=== PATIENT | male | born 1980 | race Caucasian/White ===

== ENCOUNTER 2018-02-18 09:52 | Inpatient (IN) | payer MEDICAID ==
[~2018-02-18] VITALS: Ht 190.5 cm; Wt 81.8 kg
--- NOTE | ~2018-02-18 | MORECARE ---
CASE MANAGEMENT DISCHARGE SUMMARY PATIENT: OSMIN VALERO UNIT: [id number] ADM DATE: 02/18/18 AGE: 37 : [birth year] SEX: M ROOM/BED: D.2122 AUTHOR: MOE OROPEZA PHYSICIAN: REFERRING PHYSICIAN: WILSON HOPPER MD DATE OF SERVICE: 02/20/18 Discharge Plan Patient Name: OSMIN VALERO Facility: [facility]:[place] : 1980 Planned Disposition: Home Anticipated Discharge Date: 02/19/18 Discharge Date: 02/19/2018 Expected LOS: 1 Initial Reviewer: [id number] Initial Review Date: 02/20/2018 Generated: 02/20/18 8:13 am Patient Name: OSMIN VALERO Page [id number] at 0714 All edits/amendments must be made on the electronic document DICTATION DATE: 02/20/18712 NAVAL SCIENCE TEACHER: GABBY 02/20/18712 RPT#: [id number] DC DATE:02/19/18 STATUS: DIS IN [facility] [address] [place] [address] END OF REPORT
--- NOTE | ~2018-02-18 | CN ---
PATIENT NAME:OSMIN VALERO MEDICAL RECORD: [id number] : 82 LOCATION:[address] ADMIT DATE: 02/18/18 ACCOUNT: [id number] CONSULTING PHYSICIAN: ADOLPH WHITE MD REFERRING PHYSICIAN: WILSON HOPPER MD DATE OF CONSULTATION: 02/19/2018 PSYCHIATRIC CONSULTATION IDENTIFYING DATA: The patient is 37 years old and he is admitted to the hospital on a voluntary basis secondary to tachycardia and paranoia. CHIEF COMPLAINT: "I just messed up." HISTORY OF PRESENT ILLNESS: The patient has a long history of methamphetamine abuse and he has about 6 months of sobriety until the past week. Last night was his second time using methamphetamine in the past week and at that time he developed anxiety, tachycardia and some paranoia and presented to the Emergency Room, whereupon he was admitted. This morning, he is calmer. He is dressed. He is groomed. He is appropriate and shows no evidence of intoxication with any kind of illicit substance. 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 He has no thoughts of harming himself or others. He is fully oriented and shows no evidence of acute or direct dangerousness. ASSESSMENT: 1. Methamphetamine abuse. 2. Alcohol abuse. PLAN: The patient will be maintained on current medicines, which include Seroquel and Wellbutrin. I recommend he stay on these for the time being and that he follow up with a primary care physician or if possible a psychiatrist. He is also going to attend outpatient NA meetings. His long-term prognosis is guarded and will be entirely contingent upon his ability to refrain from illicit drug use. TRANSINT:[id number] Voice Confirmation ID: [id number] DOCUMENT ID: [id number] ADOLPH WHITE MD at 1507 CC: [id number] DICTATION DATE: 02/19/18 0952 MIX MILL TENDER: 02/19/18 1004 DIS IN 02/19/18 [place] [id number] [place] [address]
[2018-02-18 10:13] LABS: BASOPHILS 0.1 % (0-2); EOSINOPHILS 1.2 % (0-7); HEMOGLOBIN 15.2 g/dL (13.5-17.5); IMMATURE GRANULOCYTES 0.1 % (0-5); LYMPHOCYTES 25.7 % (15-50); MCH 32.4 pg (26.0-34.0); MCHC 34.5 g/dL (31.0-37.0); MCV 93.8 fL (80.0-100.0); MEAN PLATELET VOLUME 9.3 fL (7.4-10.4); NEUTROPHILS 62.9 % (40-80); PLATELET COUNT 216 10x3/uL (130-400); RBC 4.69 10x6/uL (4.20-6.10); RDW 13.3 % (11.5-14.5); WBC 6.9 10x3/uL (4.8-10.8)
[2018-02-18 10:25] LABS: ALBUMIN 3.8 g/dL (3.4-5.0); ALKALINE PHOSPHATASE 65 U/L (46-116); ALT (SGPT) 21 U/L (10-68); BILIRUBIN - TOTAL 0.59 mg/dL (0.2-1.3); CALC OSMOLALITY 276 mosm/kg (275-300); CALCIUM 9.7 mg/dL (8.5-10.1); CARBON DIOXIDE 24.2 mmol/L (21.0-32.0); CHLORIDE - SERUM 101 mmol/L (98-107); GLUCOSE 159 mg/dL (74-106); POTASSIUM - SERUM 3.4 mmol/L (3.5-5.1); PROTEIN - SERUM 7.8 g/dL (6.4-8.2); SODIUM 137 mmol/L (136-145); UREA NITROGEN 12 mg/dL (7-18); eGFR NON AFRICAN AMERICAN 90 mL/min (90-120)
[2018-02-18 10:37] LABS: CKMB 1.4 U/L (0.0-3.6); CREATINE KINASE 253 UL (21-232); TROPONIN-I < 0.017 ng/mL (0.000-0.060)
[2018-02-18 10:38] LABS: APTT 27.4 SECONDS (22.8-39.4); INR 0.99 (0.85-1.17); PROTIME 12.6 SECONDS (11.6-15.0)
[2018-02-18] MEDS ORDERED: SEROQUEL100 MG PO (13:52)
[2018-02-18] MEDS ORDERED: BUPROPION XL300 MG PO (13:53)
[2018-02-18] MEDS ORDERED: OMEPRAZOLE20 M1 PO (13:54)
[2018-02-18 14:32] LABS: CKMB 1.4 U/L (0.0-3.6); CREATINE KINASE 232 UL (21-232); TROPONIN-I < 0.017 ng/mL (0.000-0.060)
[2018-02-18 15:19] VITALS: BP 128/84
[2018-02-18 15:55] VITALS: Ht 190.5 cm; Wt 81.8 kg
[2018-02-18 19:18] LABS: CKMB 1.3 U/L (0.0-3.6); CREATINE KINASE 207 UL (21-232)
[2018-02-18 19:49] LABS: TROPONIN-I < 0.017 ng/mL (0.000-0.060)
[2018-02-18 20:00] VITALS: BP 127/86
[2018-02-19 00:29] VITALS: BP 121/81
[2018-02-19 01:06] LABS: CREATINE KINASE 172 UL (21-232); TROPONIN-I < 0.017 ng/mL (0.000-0.060)
[2018-02-19 04:48] VITALS: BP 120/74
[2018-02-19 05:07] LABS: BASOPHILS 0.6 % (0-2); EOSINOPHILS 3.3 % (0-7); HEMATOCRIT 44.8 % (42.0-54.0); HEMOGLOBIN 15.1 g/dL (13.5-17.5); IMMATURE GRANULOCYTES 0.2 % (0-5); MCH 32.5 pg (26.0-34.0); MCHC 33.7 g/dL (31.0-37.0); MEAN PLATELET VOLUME 9.6 fL (7.4-10.4); MONOCYTES 10.8 % (2-11); NEUTROPHILS 53.1 % (40-80); PLATELET COUNT 224 10x3/uL (130-400); RBC 4.65 10x6/uL (4.20-6.10); RDW 13.8 % (11.5-14.5)
[2018-02-19 05:47] LABS: ALBUMIN 3.4 g/dL (3.4-5.0); ALKALINE PHOSPHATASE 60 U/L (46-116); ALT (SGPT) 18 U/L (10-68); BILIRUBIN - TOTAL 0.93 mg/dL (0.2-1.3); CALC OSMOLALITY 282 mosm/kg (275-300); CALCIUM 8.7 mg/dL (8.5-10.1); CARBON DIOXIDE 24.1 mmol/L (21.0-32.0); CHLORIDE - SERUM 105 mmol/L (98-107); CREATININE - SERUM 1.1 mg/dL (0.6-1.3); GLUCOSE 128 mg/dL (74-106); POTASSIUM - SERUM 3.6 mmol/L (3.5-5.1); PROTEIN - SERUM 7.2 g/dL (6.4-8.2); SODIUM 142 mmol/L (136-145); eGFR NON AFRICAN AMERICAN 80 mL/min (90-120)
[2018-02-19 05:50] LABS: MCV 96.3 fL (80.0-100.0); WBC 4.8 10x3/uL (4.8-10.8)
[2018-02-19 05:57] LABS: UREA NITROGEN 7 mg/dL (7-18)
[2018-02-19 08:25] VITALS: BP 119/74
[2018-02-19] MEDS ORDERED: CARDIZEM60 MG PO (10:50)
[2018-02-19] MEDS ORDERED: BUSPAR 15 MG TA15 MG PO (10:51)
[2018-02-19] MEDS ORDERED: BUPROPION XL300 MG PO (10:51)
[2018-02-19] MEDS ORDERED: OMEPRAZOLE20 M1 PO (10:52)
[2018-02-19] MEDS ORDERED: SEROQUEL100 MG PO (10:53)
== END 2018-02-19 15:30 | disposition home or self-care (01) | DRG 310 ==
LOC: D.ER 09:52 → D.EDHOLD 12:37 → D.M2 12:37
PROVIDERS: Family Medicine
DX: R00.0 Tachycardia, unspecified (principal); F15.10 Other stimulant abuse, uncomplicated; F10.10 Alcohol abuse, uncomplicated; F22 Delusional disorders; F41.8 Other specified anxiety disorders; K21.9 Gastro-esophageal reflux disease without esophagitis; Z72.0 Tobacco use

== ENCOUNTER 2018-03-17 09:06 | Emergency (ER) | payer MEDICAID ==
[~2018-03-17] VITALS: Ht 190.5 cm; Wt 81.8 kg
[~2018-03-17 09:06] MED LIST: BUPROPION XL300 MG PO; BUSPAR 15 MG TA15 MG PO; CARDIZEM60 MG PO; OMEPRAZOLE20 M1 PO; SEROQUEL100 MG PO
[2018-03-17 09:14] VITALS: Ht 190.5 cm; Wt 81.8 kg
[2018-03-17 09:37] LABS: BASOPHILS 0.4 % (0-2); EOSINOPHILS 4.4 % (0-7); HEMATOCRIT 41.7 % (42.0-54.0); HEMOGLOBIN 14.5 g/dL (13.5-17.5); IMMATURE GRANULOCYTES 0.2 % (0-5); LYMPHOCYTES 35.5 % (15-50); MCH 32.3 pg (26.0-34.0); MCHC 34.8 g/dL (31.0-37.0); MCV 92.9 fL (80.0-100.0); MEAN PLATELET VOLUME 9.3 fL (7.4-10.4); MONOCYTES 9.2 % (2-11); NEUTROPHILS 50.3 % (40-80); PLATELET COUNT 240 10x3/uL (130-400); RBC 4.49 10x6/uL (4.20-6.10); RDW 12.9 % (11.5-14.5); WBC 4.8 10x3/uL (4.8-10.8)
[2018-03-17 09:55] LABS: ALBUMIN 3.6 g/dL (3.4-5.0); ALKALINE PHOSPHATASE 63 U/L (46-116); ALT (SGPT) 37 U/L (10-68); CALC OSMOLALITY 269 mosm/kg (275-300); CALCIUM 8.8 mg/dL (8.5-10.1); CARBON DIOXIDE 22.7 mmol/L (21.0-32.0); CHLORIDE - SERUM 99 mmol/L (98-107); CREATININE - SERUM 0.9 mg/dL (0.6-1.3); GLUCOSE 168 mg/dL (74-106); PROTEIN - SERUM 7.4 g/dL (6.4-8.2); SODIUM 134 mmol/L (136-145); UREA NITROGEN 8 mg/dL (7-18); eGFR NON AFRICAN AMERICAN > 90 mL/min (90-120)
[2018-03-17 09:56] LABS: POTASSIUM - SERUM 4.2 mmol/L (3.5-5.1)
[2018-03-17 09:59] LABS: UDS - AMPHET POSITIVE QUAL (NEGATIVE); UDS - BARB NEGATIVE QUAL (NEGATIVE); UDS - BENZO NEGATIVE QUAL (NEGATIVE); UDS - COCAINE NEGATIVE QUAL (NEGATIVE); UDS - OPIATE NEGATIVE QUAL (NEGATIVE); UDS - PCP NEGATIVE QUAL (NEGATIVE); UDS - THC NEGATIVE QUAL (NEGATIVE)
[2018-03-17 10:16] LABS: CKMB 2.5 U/L (0.0-3.6); CREATINE KINASE 309 UL (21-232)
[2018-03-17 10:19] LABS: TROPONIN-I < 0.017 ng/mL (0.000-0.060)
[2018-03-17 11:10] VITALS: BP 104/58
== END 2018-03-17 11:11 | disposition home or self-care (01) ==
LOC: D.ER 09:06
PROVIDERS: Emergency Medicine
DX: F15.10 Other stimulant abuse, uncomplicated (principal); F41.0 Panic disorder [episodic paroxysmal anxiety]

== ENCOUNTER 2018-03-18 15:12 | Emergency (ER) | payer MEDICAID ==
[~2018-03-18] VITALS: Ht 190.5 cm; Wt 81.6 kg
[2018-03-18 15:17] VITALS: Ht 190.5 cm; Wt 81.6 kg
[2018-03-18 16:30] LABS: CREATINE KINASE 167 UL (21-232); TROPONIN-I < 0.017 ng/mL (0.000-0.060)
[2018-03-18 18:32] VITALS: BP 125/89
== END 2018-03-18 18:33 | disposition home or self-care (01) ==
LOC: D.ER 15:12
PROVIDERS: Emergency Medicine
DX: F15.10 Other stimulant abuse, uncomplicated (principal); R00.0 Tachycardia, unspecified

== ENCOUNTER 2018-04-16 08:58 | Emergency (ER) | payer MEDICAID ==
[~2018-04-16] VITALS: Ht 190.5 cm; Wt 81.8 kg
[2018-04-16 09:01] VITALS: Ht 190.5 cm; Wt 81.8 kg
[2018-04-16 09:57] LABS: BASOPHILS 0.6 % (0-2); EOSINOPHILS 3.7 % (0-7); HEMATOCRIT 45.8 % (42.0-54.0); HEMOGLOBIN 16.2 g/dL (13.5-17.5); IMMATURE GRANULOCYTES 0.1 % (0-5); LYMPHOCYTES 30.6 % (15-50); MCH 32.4 pg (26.0-34.0); MCHC 35.4 g/dL (31.0-37.0); MCV 91.6 fL (80.0-100.0); MEAN PLATELET VOLUME 9.3 fL (7.4-10.4); MONOCYTES 8.5 % (2-11); NEUTROPHILS 56.5 % (40-80); PLATELET COUNT 279 10x3/uL (130-400); RDW 12.8 % (11.5-14.5); WBC 6.8 10x3/uL (4.8-10.8)
[2018-04-16 09:59] LABS: APTT 29.5 SECONDS (22.8-39.4); INR 1.03 (0.85-1.17)
[2018-04-16 10:02] LABS: ALBUMIN 4.2 g/dL (3.4-5.0); ALKALINE PHOSPHATASE 82 U/L (46-116); ALT (SGPT) 29 U/L (10-68); BILIRUBIN - TOTAL 0.84 mg/dL (0.2-1.3); CALC OSMOLALITY 274 mosm/kg (275-300); CALCIUM 9.5 mg/dL (8.5-10.1); CARBON DIOXIDE 24.4 mmol/L (21.0-32.0); CHLORIDE - SERUM 101 mmol/L (98-107); POTASSIUM - SERUM 3.4 mmol/L (3.5-5.1); PROTEIN - SERUM 8.2 g/dL (6.4-8.2); SODIUM 138 mmol/L (136-145); UREA NITROGEN 9 mg/dL (7-18); eGFR NON AFRICAN AMERICAN 90 mL/min (90-120)
[2018-04-16 10:05] LABS: GLUCOSE 97 mg/dL (74-106)
[2018-04-16 10:14] LABS: CKMB 2.5 U/L (0.0-3.6); CREATINE KINASE 349 UL (21-232); MAGNESIUM - SERUM 2.2 mg/dL (1.8-2.4); TROPONIN-I < 0.017 ng/mL (0.000-0.060)
[2018-04-16 11:15] VITALS: BP 134/88
== END 2018-04-16 10:45 | disposition home or self-care (01) ==
LOC: D.ER 08:58
PROVIDERS: Emergency Medicine
DX: T43.625A Adverse effect of amphetamines, initial encounter (principal); Y92.89 Other specified places as the place of occurrence of the external cause

== ENCOUNTER 2018-05-23 09:13 | Emergency (ER) | payer MEDICAID ==
[~2018-05-23] VITALS: Ht 190.5 cm; Wt 77.3 kg
[2018-05-23 09:16] VITALS: BP 146/78; Ht 190.5 cm; Wt 77.3 kg
[2018-05-23 09:50] LABS: HEMATOCRIT 43.6 % (42.0-54.0); HEMOGLOBIN 15.3 g/dL (13.5-17.5); LYMPHOCYTES 14.7 % (15-50); MCH 32.4 pg (26.0-34.0); MCHC 35.1 g/dL (31.0-37.0); MCV 92.4 fL (80.0-100.0); MEAN PLATELET VOLUME 8.4 fL (7.4-10.4); PLATELET COUNT 316 10x3/uL (130-400); RBC 4.72 10x6/uL (4.20-6.10); RDW 13.1 % (11.5-14.5); WBC 9.6 10x3/uL (4.8-10.8)
[2018-05-23 09:53] LABS: APTT 27.8 SECONDS (22.8-39.4); INR 0.98 (0.85-1.17); PROTIME 12.5 SECONDS (11.6-15.0)
[2018-05-23 09:58] LABS: ALBUMIN 4.2 g/dL (3.4-5.0); ALKALINE PHOSPHATASE 68 U/L (46-116); ALT (SGPT) 34 U/L (10-68); BILIRUBIN - TOTAL 1.11 mg/dL (0.2-1.3); CALC OSMOLALITY 275 mosm/kg (275-300); CALCIUM 9.6 mg/dL (8.5-10.1); CARBON DIOXIDE 26.6 mmol/L (21.0-32.0); CHLORIDE - SERUM 100 mmol/L (98-107); GLUCOSE 113 mg/dL (74-106); POTASSIUM - SERUM 3.4 mmol/L (3.5-5.1); PROTEIN - SERUM 7.8 g/dL (6.4-8.2); SODIUM 138 mmol/L (136-145); UREA NITROGEN 11 mg/dL (7-18); eGFR NON AFRICAN AMERICAN 90 mL/min (90-120)
[2018-05-23 10:08] LABS: CKMB 4.9 U/L (0.0-3.6); CREATINE KINASE 318 UL (21-232); MAGNESIUM - SERUM 2.3 mg/dL (1.8-2.4)
[2018-05-23 10:10] LABS: TROPONIN-I < 0.017 ng/mL (0.000-0.060)
== END 2018-05-23 10:43 | disposition home or self-care (01) ==
LOC: D.ER 09:13
PROVIDERS: Family Medicine
DX: R07.89 Other chest pain (principal); F41.9 Anxiety disorder, unspecified; F15.129 Other stimulant abuse with intoxication, unspecified; F17.210 Nicotine dependence, cigarettes, uncomplicated; K21.9 Gastro-esophageal reflux disease without esophagitis

== ENCOUNTER 2018-06-09 02:34 | Emergency (ER) | payer MEDICAID | END 2018-06-09 03:11 | disposition home or self-care (01) | LOC: D.ER 02:34 | DX: R00.0 Tachycardia, unspecified (principal); F15.10 Other stimulant abuse, uncomplicated ==

== ENCOUNTER 2018-06-13 00:03 | Emergency (ER) | payer MEDICAID ==
[~2018-06-13] VITALS: Ht 190.5 cm; Wt 77.3 kg
[2018-06-13 00:06] VITALS: Ht 190.5 cm; Wt 77.3 kg
[2018-06-13 01:05] VITALS: BP 127/93
== END 2018-06-13 01:04 | disposition home or self-care (01) ==
LOC: D.ER 00:03
DX: F15.20 Other stimulant dependence, uncomplicated (principal)

== ENCOUNTER 2018-06-15 11:08 | Emergency (ER) | payer MEDICAID ==
[~2018-06-15] VITALS: Ht 190.5 cm; Wt 77.3 kg
[2018-06-15 11:29] VITALS: Ht 190.5 cm; Wt 77.3 kg
[2018-06-15 11:53] LABS: BASOPHILS 0.3 % (0-2); EOSINOPHILS 0.4 % (0-7); HEMATOCRIT 43.7 % (42.0-54.0); HEMOGLOBIN 15.6 g/dL (13.5-17.5); IMMATURE GRANULOCYTES 0.3 % (0-5); LYMPHOCYTES 12.7 % (15-50); MCH 32.4 pg (26.0-34.0); MCHC 35.7 g/dL (31.0-37.0); MCV 90.9 fL (80.0-100.0); MEAN PLATELET VOLUME 8.9 fL (7.4-10.4); MONOCYTES 6.9 % (2-11); NEUTROPHILS 79.4 % (40-80); PLATELET COUNT 349 10x3/uL (130-400); RBC 4.81 10x6/uL (4.20-6.10); RDW 13.3 % (11.5-14.5); WBC 11.8 10x3/uL (4.8-10.8)
[2018-06-15 12:06] LABS: APTT 29.3 SECONDS (22.8-39.4); INR 1.04 (0.85-1.17); PROTIME 13.1 SECONDS (11.6-15.0)
[2018-06-15 12:07] LABS: UDS - AMPHET POSITIVE QUAL (NEGATIVE); UDS - BARB NEGATIVE QUAL (NEGATIVE); UDS - BENZO NEGATIVE QUAL (NEGATIVE); UDS - COCAINE NEGATIVE QUAL (NEGATIVE); UDS - OPIATE NEGATIVE QUAL (NEGATIVE); UDS - PCP NEGATIVE QUAL (NEGATIVE); UDS - THC NEGATIVE QUAL (NEGATIVE)
[2018-06-15 12:09] LABS: ALKALINE PHOSPHATASE 88 U/L (46-116); ALT (SGPT) 26 U/L (10-68); BILIRUBIN - TOTAL 0.79 mg/dL (0.2-1.3); CALC OSMOLALITY 276 mosm/kg (275-300); CALCIUM 9.5 mg/dL (8.5-10.1); CARBON DIOXIDE 23.7 mmol/L (21.0-32.0); CHLORIDE - SERUM 101 mmol/L (98-107); GLUCOSE 99 mg/dL (74-106); POTASSIUM - SERUM 3.5 mmol/L (3.5-5.1); PROTEIN - SERUM 7.8 g/dL (6.4-8.2); SODIUM 139 mmol/L (136-145); UREA NITROGEN 9 mg/dL (7-18); eGFR NON AFRICAN AMERICAN 90 mL/min (90-120)
[2018-06-15 12:21] LABS: CKMB 2.5 U/L (0.0-3.6); CREATINE KINASE 220 UL (21-232); MAGNESIUM - SERUM 1.8 mg/dL (1.8-2.4); TROPONIN-I < 0.017 ng/mL (0.000-0.060)
[2018-06-15 12:32] VITALS: BP 136/80
== END 2018-06-15 12:33 ==
LOC: D.ER 11:08
PROVIDERS: Family Medicine
DX: F15.20 Other stimulant dependence, uncomplicated (principal)